=== PATIENT | male | born 1975 | race Caucasian/White ===

== ENCOUNTER 2022-07-27 07:49 | Emergency (ER) | payer OTHER ==
--- OUTSIDE RECORDS SUMMARY | 2022-07-27 07:53 | XMS REPORT | Continuity of Care Document ---
:1975 Author Organization [facility] t Address [address] [place] [address] [place] [id number] Care Team Providers Name Role Phone Herve Rose Primary Care Physician CARMEN BAER Attending Clinician Unavailable Carmen Baer DO Attending Clinician KILO POPE Attending Clinician Unavailable Kilo Pope MD Attending Clinician Payers Payer Name Policy Type Policy Number Effective Date Expiration Date [facility] [place] [id number] 2022 PPO 00:00:00 Problems This patient has no known problems. Allergies, Adverse Reactions, Alerts Allergy Allergy Status Severity Reaction(s) Onset Inactive Treating Comm ents Source Name Type Date Date Clinician NO KNOWN Drug Active [facility] [place] [facility] [place] Social History Social Habit Start Date Stop Date Quantity Comments Source Exposure to 2022-07-14 2022-07-24 Not sure [facility] SARS-CoV-2 (event) 00:00:00 14:13:00 Medica l Branch Sex Ass[birth year] [facility] 00:00:00 00:00:00 Medical Branch Smoking Status Start Date Stop Date Source Tobacco smoking consumption [facility] Medical unknown Branch Medications Ordered Filled Start Stop Current Ordering Indication Dosage Frequency Signature Comments Components Source Medication Medication Date Date Medication? Clinician (SIG) Name Name dexamethaso 2022- No 10mg 10 mg, Uni vers ne sod phos 5-14 05-14 Oral, ity of 19:30: 19:18 ONCE, 1 [place] injection 00 :00 dose, On Medica l 10 mg [place] 5/14/23 at 1430, 1 mL ibuprofen 2022-0 Yes [id number] 800mg Take 1 Univers 800 mg 5-12 tablet by ity of tablet 00:00: mouth [place] 00 every 8 Medical (eight) Branch hours as needed for Pain (scale 4-6). ibuprofen 2022-0 Yes [id number] 800mg Take 1 Univers 800 mg 5-12 tablet by ity of tablet 00:00: mouth [place] 00 every 8 Medical (eight) Branch hours as needed for Pain (scale 4-6). Vital Signs Vital Name Observation Time Observation Value Comments Source Systolic blood 2022-07-24 19:00:00 166 mm[Hg] Univer sity of [facility] Diastolic blood 2022-07-24 19:00:00 100 mm[Hg] [facility] Heart rate 2022-07-24 19:00:00 93 /min Universi ty [facility] Body temperature 2022-07-24 19:00:00 37.11 Annel [facility] Respiratory rate 2022-07-24 19:00:00 16 /min [facility] Body height 2022-07-24 19:00:00 200.7 cm Universi ty [facility] Body weight 2022-07-24 19:00:00 134.265 kg Universi ty [facility] BMI 2022-07-24 19:00:00 33.35 kg/m2 [facility] Oxygen saturation in 2022-07-24 19:00:00 96 /min [facility] Arterial blood by [facility] Pulse oximetry Branch Systolic blood 2022-07-22 12:07:28 161 mm[Hg] Univer sity of [facility] Diastolic blood 2022-07-22 12:07:28 101 mm[Hg] Unive rsity of [facility] Heart rate 2022-07-22 11:22:00 99 /min Universi ty [facility] Body temperature 2022-07-22 11:22:00 37 Annel [facility] 2022-07-22 11:22:00 20 /min [facility] Body height 2022-07-22 11:22:00 200.7 cm Universi ty [facility] Body weight 2022-07-22 11:22:00 134.038 kg [facility] BMI 2022-07-22 11:22:00 33.29 kg/m2 [facility] Oxygen saturation in 2022-07-22 11:22:00 97 /min University Arterial blood by [facility] Pulse oximetry Branch Procedures Procedure Date / Time Performed Performing Clinician Sourc e ASSIGNMENT OF BENEFITS 2022-07-24 19:29:49 Doctor Unassigned, No [facility] RAPID STREP SCREEN FOR 2022-07-24 19:14:00 [facility] 2022-07-22 12:10:14 Doctor Unassigned, No [facility] RAPID STREP SCREEN FOR 2022-07-22 11:29:00 Kilo Pope [facility] NOTICE OF PRIVACY 2022-07-22 11:20:45 Doctor Unassigned, No [facility] CONSENT/REFUSAL FOR 2022-07-22 11:20:30 [facility] T[facility] Encounters Start End Encounter Admission Attending Care Care Encounter Source Date/Time Date/Time Type Type Clinicians Facility Department ID 2022-07-24 2022-07-24 Emergency X KEYUR [facility] ERT [id number] Univers 14:14:00 15:09:00 CARMEN becker [facility] 2022-07-24 2022-07-24 Emergency Keyur [facility] [id number] Univers 14:14:00 15:09:00 Carmen [facility]ER[id number] [facility] [id number] [facility] [id number] [facility] 084 Branch 2022-07-22 2022-07-22 Emergency X ALEISHA POPE ERT [id number] Univers 06:27:00 07:10:00 KILO becker [facility] 2022-07-22 2022-07-22 Emergency Nicole MDPAM [id number] Univers 06:27:00 07:10:00 Kilo PIERCE [id number] itJimbo [id number] [facility] [id number] [facility] 084 Branch Results This patient has no known results.
--- NOTE | 2022-07-27 08:07 | EDPHYS ---
Physician Documentation [facility] Name: Triston Ross Age: 47 yrs Sex: Male : 1975 Arrival Date: 07/27/2022 Time: 07:49 Bed 5 Private MD: ED Physician Jomar Desai HPI: 07/27 08:12 This 47 yrs old Male presents to ER via Ambulatory with complaints of Sore Throat, rt Difficulty Swallowing. 08:12 Patient presents to the ED with 1 week of sore throat. The patient reports pain with rt swallowing, states that he does not feel the food gets stuck, denies any voice changes. Patient states that he has had a cough. The patient states that he had a negative strep screen, was told take lozenges, ibuprofen. Patient states that the symptoms are not any better. He denies other acute complaints at this time. Symptoms are mild in severity, no other aggravating or alleviating factors.. Historical: - Allergies: 07:57 No Known Allergies; iw - Home Meds: 07:57 Metformin Oral [Active]; cholesterol medicine [Active]; iw - PMHx: 07:57 Hypercholesterolemia; iw - PSHx: 07:57 None; iw - Family history:: not pertinent. ROS: 08:12 Constitutional: Negative for fever, chills, and weight loss, Neck: Negative for injury, rt pain, and swelling, Cardiovascular: Negative for chest pain, palpitations, and edema, Abdomen/GI: Negative for abdominal pain, nausea, vomiting, diarrhea, and constipation, Skin: Negative for injury, rash, and discoloration, Neuro: Negative for headache, weakness, numbness, tingling, and seizure. 08:12 ENT: Positive for sore throat, Negative for rhinorrhea. 08:12 Respiratory: Positive for cough, Negative for shortness of breath. Exam: 08:12 Constitutional: This is a well developed, well nourished patient who is awake, alert, rt and in no acute distress. Head/Face: Normocephalic, atraumatic. Chest/axilla: Normal chest wall appearance and motion. Nontender with no deformity. No lesions are appreciated. Cardiovascular: Regular rate and rhythm with a normal S1 and S2. No gallops, murmurs, or rubs. Normal PMI, no JVD. No pulse deficits. Respiratory: Lungs have equal breath sounds bilaterally, clear to auscultation and percussion. No rales, rhonchi or wheezes noted. No increased work of breathing, no retractions or nasal flaring. Abdomen/GI: Soft, non-tender, with normal bowel sounds. No distension or tympany. No guarding or rebound. No evidence of tenderness throughout. 08:12 ENT: Posterior pharyngeal erythema without exudates, tonsillar hypertrophy, uvula is midline, no stridor. Vital Signs: 07:55 BP 156 / 101; Pulse 85; Resp 16; Pulse Ox 98% on R/A; Weight 133.81 kg; Height 6 ft. 7 iw in. ; Pain 9/10; 07:55 Body Mass Index 33.23 (133.81 kg, 200.66 cm) iw 07:55 Pain Scale: Adult iw MDM: 08:00 Patient medically screened. rt 08:12 Differential diagnosis: Viral pharyngitis, strep pharyngitis, RPA, [employer], Bereket's rt angina, pneumonia. Data reviewed: vital signs, nurses notes. Test considered but Not performed: CT: CT soft tissue neck offered to the patient as well as chest x-ray to rule out pneumonia, patient declines this comes and believe that this is reasonable as there is no clinical evidence to suggest a deep space infection. Administered Medications: No medications were administered Disposition Summary: 07/27/22 08:06 Discharge Ordered Location: Home rt Problem: new rt Symptoms: are unchanged rt Condition: Stable rt Diagnosis - Acute pharyngitis, unspecified rt Followup: rt - With: Private Physician - When: 5 - 6 days - Reason: Discharge Instructions: - Discharge Summary Sheet rt - Pharyngitis rt - Viral Respiratory Infection rt - Strep Throat, Adult, [id number] rt Forms: - Medication Reconciliation Form rt - Thank You Letter rt - Antibiotic Education rt - Prescription Opioid Use rt Prescriptions: - Augmentin 875-125 mg Oral Tablet - take 1 tablet by ORAL route every 12 hours for 10 days; 20 tablet; Refills: 0, rt Product Selection Permitted Signatures: Blanca Mora RN RN Jomar Burnett MD MD rt Corrections: (The following items were deleted from the chart) 07:58 07:57 Allergies: Aspirin; iw iw 07:58 07:57 PMHx: Diabetes mellitus; iw iw 07:58 07:57 PSHx: None; iw iw 58 07:57 PSHx: Total abdominal hysterectomy; iw iw
--- NOTE | 2022-07-27 08:07 | ER ---
Nurse's Notes [facility] Name: Triston Ross Age: 47 yrs Sex: Male : 1975 Arrival Date: 07/27/2022 Time: 07:49 Bed 5 Private MD: Diagnosis: Acute pharyngitis, unspecified Presentation: 07/27 07:55 Chief complaint: Patient states: can't swallow his throat hurts so bad and he's iw coughing stuff up, X 1 week, strep was negative at [facility]. Coronavirus screen: Client presents with at least one sign or symptom that may indicate coronavirus-19. Ebola Screen: Patient negative for fever greater than or equal to 101.5 degrees Fahrenheit, and additional compatible Ebola Virus Disease symptoms Patient denies exposure to infectious person. Patient denies travel to an Ebola-affected area in the 21 days before illness onset. No symptoms or risks identified at this time. Initial Sepsis Screen: Does the patient meet any 2 criteria? No. Patient's initial sepsis screen is negative. Does the patient have a suspected source of infection? No. Patient's initial sepsis screen is negative. Risk Assessment: Do you want to hurt yourself or someone else? Patient reports no desire to harm self or others. Onset of symptoms was July 20, 2022. 07:55 Method Of Arrival: Ambulatory iw 07:55 Acuity: KALIA 4 iw Historical: - Allergies: 07:57 No Known Allergies; iw - Home Meds: 07:57 Metformin Oral [Active]; cholesterol medicine [Active]; iw - PMHx: 07:57 Hypercholesterolemia; iw - PSHx: 07:57 None; iw - Family history:: not pertinent. Screenin:08 [facility] ED Fall Risk Assessment (Adult) History of falling in the last 3 months, kc6 including since admission No falls in past 3 months (0 pts) Confusion or Disorientation No (0 pts) Intoxicated or Sedated No (0 pts) Impaired Gait No (0 pts) Mobility Assist Device Used No (0 pt) Altered Elimination No (0 pt) Score/Fall Risk Level 0 - 2 = Low Risk Oriented to surroundings, Maintained a safe environment, Educated pt \\T\\ family on fall prevention, incl call for assistance when getting out of bed, Assessed \\T\\ reinforced patient's understanding of fall precautions, Hourly rounding (assess needs \\T\\ fall precautionary measures) done. Abuse screen: Denies threats or abuse. Denies injuries from another. Nutritional screening: No deficits noted. Tuberculosis screening: No symptoms or risk factors identified. Assessment: 08:07 General: Appears in no apparent distress. comfortable, Behavior is calm, cooperative, kc6 appropriate for age. Pain: Complains of pain in "sore throat". Neuro: [place]o Agitation-Sedation Scale (RASS): 0 - Alert and Calm Level of Consciousness is awake, alert, obeys commands, Oriented to person, place, time, situation, Appropriate for age. Cardiovascular: Capillary refill < 3 seconds. Respiratory: Airway is patent Trachea midline Respiratory effort is even, unlabored, Respiratory pattern is regular, symmetrical, Breath sounds are clear bilaterally. GI: No signs and/or symptoms were reported involving the gastrointestinal system. : No signs and/or symptoms were reported regarding the genitourinary system. EENT: Throat is reddened bilaterally Reports difficulty swallowing. Derm: No signs and/or symptoms reported regarding the dermatologic system. Skin is intact, Skin is pink, warm \\T\\ dry. Musculoskeletal: No signs and/or symptoms reported regarding the musculoskeletal system. Circulation, motion, and sensation intact. Capillary refill < 3 seconds, Range of motion: intact in all extremities. Vital Signs: 07:55 BP 156 / 101; Pulse 85; Resp 16; Pulse Ox 98% on R/A; Weight 133.81 kg; Height 6 ft. 7 iw in. ; Pain 9/10; 07:55 Body Mass Index 33.23 (133.81 kg, 200.66 cm) iw 07:55 Pain Scale: Adult iw ED Course: 07:51 Patient arrived in ED. ts1 07:57 Triage completed. iw 07:58 Arm band placed on. iw 07:59 Jomar Desai MD is Attending Physician. rt 08:05 Swetha Wilkinson RN is Primary Nurse. kc6 08:08 Patient has correct armband on for positive identification. Bed in low position. Call kc6 light in reach. Side rails up X 1. 08:10 No provider procedures requiring assistance completed. Patient did not have IV access kc6 during this emergency room visit. Administered Medications: No medications were administered Medication: 08:10 VIS not applicable for this client. kc6 Outcome: 08:06 Discharge ordered by . rt 08:10 Discharged to home ambulatory. kc6 08:10 Condition: stable 08:10 Discharge instructions given to patient, Instructed on discharge instructions, follow up and referral plans. medication usage, Demonstrated understanding of instructions, follow-up care, medications, Prescriptions given X 1. 08:10 Patient left the ED. kc6 Signatures: Blanca Mora RN RN iw Swetha Wilkinson RN RN kc6 Jomar Desai MD MD rt Shivani Stubbs PAS PAS ts1 Corrections: (The following items were deleted from the chart) 07:58 07:57 Allergies: Aspirin; [facility] 07:58 07:57 PMHx: Diabetes mellitus; [facility] 07:58 07:57 PSHx: None; 07:58 07:57 PSHx: Total abdominal hysterectomy; iw
[2022-07-27 08:15] VITALS: BP 156/101; O2SAT 98
== END 2022-07-27 08:10 | disposition home or self-care (01) ==
LOC: ER 07:49
DX: J02.9 Acute pharyngitis, unspecified (principal)